=== PATIENT | male | born 1980 | race Asian ===

== ENCOUNTER 2017-08-10 15:11 | Emergency (ER) | payer OTHER ==
--- NOTE | 2017-08-10 15:13 | UC ---
UC General HPI - History of Current Complaint Stated Complaint: NEEDS X-RAY
--- NOTE | 2017-08-10 15:30 | UC ---
UC General HPI - HPI Summary HPI Summary: Pt presents in need of a CXR due to positive ppd. He tells me that he received the BCG vaccine awhile ago and, as a result, has a positive ppd. 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 No symptoms. - History of Current Complaint Stated Complaint: NEEDS X-RAY Time Seen by Provider: 08/10/17 15:13 Hx Obtained From: Patient - Allergy/Home Medications Allergies/Adverse Reactions: Allergies Allergy/AdvReac Type Severity Reaction Status Date / Time No Known Allergies Allergy Verified 08/10/17 15:30 Home Medications: Home Medications NK [No Home Medications Reported] 08/10/17 [History Confirmed 08/10/17] PMH/Surg Hx/FS Hx/Imm Hx Previously Healthy: Yes - Family History Known Family History: Positive: None - Social History Occupation: Employed Full-time Lives: Alone Alcohol Use: Occasionally Substance Use Type: None Smoking Status (MU): Never Smoked Tobacco Review of Systems Constitutional: Negative Skin: Negative Eyes: Negative ENT: Negative Respiratory: Negative Cardiovascular: Negative Gastrointestinal: Negative Neurovascular: Negative Musculoskeletal: Negative Neurological: Negative Psychological: Negative All Other Systems Reviewed And Are Negative: Yes Physical Exam Triage Information Reviewed: Yes Appearance: Well-Appearing, No Pain Distress, Well-Nourished Vital Signs Reviewed: Yes Eyes: Positive: Conjunctiva Clear. Negative: Conjunctiva Inflamed, Discharge Neck: Positive: Supple, Nontender, No Lymphadenopathy Respiratory: Positive: Lungs clear, Normal breath sounds, No respiratory distress, No accessory muscle use Cardiovascular: Positive: RRR, No Murmur, Pulses Normal Neurological: Positive: Alert Psychological: Positive: Age Appropriate Behavior Skin: Negative: rashes Course/Dx - Course Course Of Treatment: CXR: IMPRESSION: NO ACTIVE CARDIOPULMONARY DISEASE. NO RADIOGRAPHIC EVIDENCE OF PULMONARY PARENCHYMAL. TUBERCULOSIS. - Differential Dx - Multi-Symptom Provider Diagnoses: Hx of positive ppd Discharge - Discharge Plan Condition: Stable Disposition: HOME Referrals: No Primary Care Phys,NOPCP [Primary Care Provider] - Additional Instructions: .
[2017-08-10 15:32] VITALS: BP 133/86
--- NOTE | 2017-08-10 15:34 | RAD ---
HISTORY: History of tuberculosis COMPARISONS: None VIEWS: 4: Frontal dual-energy and lateral views of the chest. FINDINGS: CARDIOMEDIASTINAL SILHOUETTE: The cardiomediastinal silhouette is normal. LIAN: The lian are normal. PLEURA: The costophrenic angles are sharp. No pleural abnormalities are noted. LUNG PARENCHYMA: The lungs are clear. ABDOMEN: The upper abdomen is clear. There is no subphrenic gas. BONES AND SOFT TISSUES: No bone or soft tissue abnormalities are noted. OTHER: None. IMPRESSION: NO ACTIVE CARDIOPULMONARY DISEASE. NO RADIOGRAPHIC EVIDENCE OF PULMONARY PARENCHYMAL TUBERCULOSIS.
== END 2017-08-10 15:45 | disposition home or self-care (01) ==
LOC: UCEAST 15:11
DX: R76.11 Nonspecific reaction to tuberculin skin test without active tuberculosis (principal)
CPT/HCPCS: 71046; 99201; G0463